=== PATIENT | male | born 1990 | race American Indian/Alaskan Native ===

== ENCOUNTER 2021-02-27 01:43 | Emergency (ER) | payer OTHER ==
--- NOTE | 2021-02-27 01:54 | Emergency Department Report ---
HPI - General Time Seen by Provider: 02/27/21 01:45 - HPI HPI: This is a 31-year-old -[place] male presents to the emergency department with a complaint of a laceration to the right wrist that occurred accidentally when he was trying to get into his home through a window. Patient says that he did not have his bragg and his significant other locked him out after a disagre ement. He said that he was sliding his hand underneath the window and attempt to get inside and the window suddenly broke. His significant other then drove him to the emergency department for evaluation. He wrapped his arm and wrist up in a shirt to try and create a tourniquet. He says that he last had a tetanus vaccination about 2 years ago. He is right-hand dominant. He denies any other past medical history. ED Past Medical Hx - Medications Home Medications: Home Medications Medication Instructions Recorded Confirmed Last Taken Type Sulfamethoxazole/Trimethoprim 1 each PO BID #10 tablet 02/27/21 Unknown Rx [Bactrim DS TAB] ED Review of Systems ROS: Stated complaint: DEEP LACERATION RT WRIST Other details as noted in HPI Comment: All other systems reviewed and negative Constitutional: denies: chills, fever Eyes: denies: eye pain, vision change ENT: denies: ear pain, throat pain Respiratory: denies: cough, shortness of breath Cardiovascular: denies: chest pain, palpitations Gastrointestinal: denies: abdominal pain, vomiting Genitourinary: denies: dysuria, discharge Musculoskeletal: arthralgia (right wrist laceration). denies: back pain Skin: other (right wrist laceration). denies: rash Neurological: denies: headache, weakness Physical Exam - Physical Exam Physical Exam: GENERAL: The patient is well-developed well-nourished. HENT: Normocephalic. Atraumatic. Patient has moist mucous membranes. EYES: Extraocular motions are intact. NECK: Supple. Trachea is midline. CHEST/LUNGS: Clear to auscultation. There is no respiratory distress noted. HEART/CARDIOVASCULAR: Regular. There is no tachycardia. There is no murmur. ABDOMEN: Abdomen is soft, nontender. Patient has normal bowel sounds. SKIN: Skin is warm and dry. There are 2 different irregular lacerations to the volar right wrist. Both are about 3 cm in their greatest diameter. One of the lacerations has a flap. Both are gapped by about 1 cm. There is a superficial, linear laceration to the mid to distal dorsal right forearm. NEURO: The patient is awake, alert, and oriented. The patient is cooperative. The patient has no focal neurologic deficits. Normal speech. MUSCULOSKELETAL: There is reproducible tenderness to palpation to the right volar wrist and distal dorsal forearm. Radial pulse +2/4 and capillary refill less than 2 seconds to the affected right upper extremity. There is no limitation range of motion. - Laceration /Wound Repair Right Volar Wrist Wound Location: upper extremity (Right volar wrist) Wound Length (cm): 3 Wound's Depth, Shape: irregular Wound Explored: no foreign body removed Irrigated w/ Saline (ccs): 50 Anesthesia: 1% Lidocaine Volume Anesthetic (ccs): 5 Wound Repaired With: sutures Suture Size/Type: 4:0, 3:0, proline Number of Sutures: 6 (1 horizontal mattress, 5 simple interrupted) Layer Closure?: No Sterile Dressing Applied?: Yes Right Volar Arm Wound Location: upper extremity (Right volar wrist) Wound Length (cm): 3 Wound's Depth, Shape: irregular, flap Wound Explored: no foreign body removed Irrigated w/ Saline (ccs): 50 Anesthesia: 1% Lidocaine Volume Anesthetic (ccs): 4 Wound Repaired With: sutures Suture Size/Type: 4:0, 3:0 Number of Sutures: 6 (1 vertical mattress, 5 simple interrupted) Sterile Dressing Applied?: Yes Right Dorsal Arm Wound Location: upper extremity (Right distal dorsal forearm) Wound Length (cm): 2 Wound's Depth, Shape: superficial, linear Wound Explored: no foreign body removed Irrigated w/ Saline (ccs): 50 Anesthesia: 1% Lidocaine Volume Anesthetic (ccs): 2 Wound Repaired With: sutures Suture Size/Type: 4:0 Number of Sutures: 4 Sterile Dressing Applied?: Yes ED Medical Decision Making - Lab Data Result diagrams: 02/27/21 01:58 Labs 02/27/21 01:58 WBC 6.2 RBC 4.66 Hgb 14.7 Hct 43.8 MCV 94 MCH 32 MCHC 34 RDW 14.2 Plt Count 242 Lymph % (Auto) 37.9 H [place] % (Auto) 7.2 Eos % (Auto) 2.3 Baso % (Auto) 0.6 Lymph # (Auto) 2.3 [place] # (Auto) 0.4 Eos # (Auto) 0.1 Baso # (Auto) 0.0 Seg Neutrophils % 52.0 Seg Neutrophils # 3.2 - Radiology Data Radiology results: image reviewed interpreted by me: X-ray of the right wrist does not show any fracture, dislocation, radiopaque foreign body. - Medical Decision Making Patient presents with a few different lacerations to the right volar wrist and d istal dorsal forearm after he attempted to get back into his home through the window and the glass broke. X-ray does not show any fracture, dislocation, radiopaque foreign body. The lacerations were repaired as per the procedure section. After laceration repair, there was no further significant bleeding. Hemoglobin came back at greater than 14. The patient was placed in a volar OCL splint to limit movement of the wrist so the lacerations can better heal given that they are at the joint and high tension areas. We discussed laceration and wound care. The patient is neurovascular intact suleman th before and after splint placement. He has been encouraged to follow-up with primary care and has been given an outpatient referral for an orthopedist. Vital signs reassuring including being afebrile. He will return to the emergency department with any worsening of symptoms or with any acute distress. Critical Care Time: No Critical care attestation.: If time is entered above; I have spent that time in minutes in the direct care of this critically ill patient, excluding procedure time. ED Disposition Clinical Impression: Laceration of multiple sites of arm Qualifiers: Encounter type: initial encounter Laterality: right Qualified Code(s): S41.111A - Laceration without foreign body of right upper arm, initial encounter Laceration of wrist Qualifiers: Encounter type: initial encounter Laterality: right Qualified Code(s): S61.511A - Laceration without foreign body of right wrist, initial encounter Laceration of forearm Qualifiers: Encounter type: initial encounter Laterality: right Qualified Code(s): S51.811A - Laceration without foreign body of right forearm, initial encounter Disposition: 01 HOME / SELF CARE / HOMELESS Is pt being admited?: No Condition: Stable Instructions: Laceration Care, Adult, Wound Care, Adult, Sutured Wound Care Additional Instructions: Please follow-up with a primary care physician in the next few days. I have given you a referral for a local orthopedist, Dr. Bueno, to follow-up regarding the wrist and forearm lacerations. Please use the splint over the next 3 to 4 days. Do not get the splint wet or it will lose its structural integrity. The sutures will need to be removed in about 7 to 10 days. This can be done at your primary care physician's office, at the orthopedist, some urgent cares, or back in the emergency department. Please make sure you are seen immediately with any signs/symptoms of infection such as increased pain, increased swelling, surrounding redness, development of fever, or discharge of pus. Return to the emergency department with any worsening of your symptoms, new or concerning symptoms not addressed during this current emergency department visit, or with any acute distress. Prescriptions: Sulfamethoxazole/Trimethoprim [Bactrim DS TAB] 1 each PO BID #10 tablet Referrals: VIKTORIA BHARDWAJ MD [Primary Care Provider] - 3-5 Days TODD BUENO MD [Staff Physician] - 3-5 Days Forms: Work/School Release Form(ED) Time of Disposition: 03:39
[2021-02-27] MEDS ORDERED: LIDOCAINE (1%) 10 MG/1 ML VIAL 20 ML MDV INFILTRATI ONE (02:04)
[2021-02-27] MEDS ORDERED: SODIUM CHLORIDE 0.9% IRR 500 ML BOTTLE IR ONE (02:07)
--- NOTE | 2021-02-27 02:27 | XRay Report ---
RIGHT WRIST 3 VIEWS INDICATION / CLINICAL INFORMATION: laceration from glass COMPARISON: None available. FINDINGS: BONES / JOINT(S): No acute fracture or subluxation. Chronic posttraumatic change base of the fifth me tacarpal and fourth metacarpal shaft. K wires at the proximal phalanx of the fifth digit. Flattening of the first metacarpal head likely due to avascular necrosis. SOFT TISSUES: Soft tissue injury along the radial aspect of the carpus. No definite radiopaque foreig n body. ADDITIONAL FINDINGS: None. Signer Name: Rolando Mustafa MD Signed: 02/27/2021 2:22 AM Workstation Name: [id number]
[2021-02-27 02:42] LABS: Basophils % (Auto) 0.6 % (0.0-1.8); Eosinophils # (Auto) 0.1 K/mm3 (0.0-0.4); Eosinophils % (Auto) 2.3 % (0.0-4.3); Hematocrit 43.8 % (35.5-45.6); Hemoglobin 14.7 gm/dl (11.8-15.2); Lymphocytes # (Auto) 2.3 K/mm3 (1.2-5.4); Lymphocytes % (Auto) 37.9 % (13.4-35.0); Mean Corpuscular HGB Conc 34 % (32-34); Mean Corpuscular Volume 94 fl (84-94); Monocytes # (Auto) 0.4 K/mm3 (0.0-0.8); Monocytes % (Auto) 7.2 % (0.0-7.3); Platelet Count 242 K/mm3 (140-440); Red Blood Count 4.66 M/mm3 (3.65-5.03); Red Cell Distribution Width 14.2 % (13.2-15.2)
[2021-02-27 03:41] VITALS: BP 137/90
== END 2021-02-27 04:40 | disposition home or self-care (01) ==
LOC: ED 01:43
DX: S41.111A Laceration without foreign body of right upper arm, initial encounter (principal); S61.511A Laceration without foreign body of right wrist, initial encounter; S51.811A Laceration without foreign body of right forearm, initial encounter; X58.XXXA Exposure to other specified factors, initial encounter; Y93.89 Activity, other specified; Y92.89 Other specified places as the place of occurrence of the external cause; Y99.8 Other external cause status
CPT/HCPCS: 12004; 36415; 73110; 85025; 96365; 99284; J0690